=== PATIENT | male | born 1985 | race Caucasian/White ===

== ENCOUNTER 2018-08-05 07:44 | Emergency (ER) | payer MEDICAID, SELFPAY ==
[2018-08-05 07:51] VITALS: BP 127/73; PULSE 88; RESP 16; TEMP 36.6; O2SAT 96
[2018-08-05] MEDS: predniSONE 20 MG TAB 60 MG PO (08:00)
[2018-08-05] MEDS: Albuterol HFA 8 GM 60 PUFF INH IH (08:00)
--- NOTE | 2018-08-05 08:00 | W.ED.GENAD ---
Discharge Plan Disposition Patient Disposition: HOME Condition: Improving Discharge Details Chief Complaint: RespSymp Clinical Impression: Acute bronchitis with bronchospasm Primary Care Provider: NONE,NONE ED Provider: Chilo Fontaine Home Meds and New Rx's Prescriptions: New doxycycline hyclate 100 mg capsule 100 mg PO BID 10 Days Qty: 20 RF: 0 prednisone 20 mg tablet 40 mg PO DAILY 5 Days Qty: 10 RF: 0 guaifenesin [Mucinex] 600 mg tablet extended release 12hr 600 mg PO Q12H PRNQty: 10 RF: 0 Continue fluoxetine [Prozac] 40 MG capsule 1 cap PO DAILY RF: 0 atomoxetine [Strattera] 25 MG capsule 25 mg PO DAILY Qty: 60 RF: 2 No Action gabapentin 300 MG capsule 300 mg PO DIRECTED RF: 0 naloxone [Narcan] 4 MG spray,non-aerosol 4 mg NS DIRECTED Qty: 2 RF: 3 Discharge Instructions Instructions: Acute Bronchitis (ED) Additional Instructions: We will place your name on the list for follow-up to establish a primary care physician. Take medications as prescribed Return to the emergency department for any acute concerns. Please continue efforts to decrease smoking Medical Decision Making 33-year-old male smoker with 1 week of cough, congestion, wheezing at home. He presents with normal vital signs including oxygenation. He is in no acute distress. His exam does reveal some bronchospasm. Referred for chest x-ray to rule out underlying pneumonia versus bronchitis with bronchospasm. Given prednisone and albuterol updraft. He is somewhat improved with these therapeutics. His radiograph does not reveal clear infiltrate. We will place him on antibiotics for presumptive bronchitis. We will give him a burst of steroids as well. We will arrange for him to follow-up with PMD. HPI General Mode of arrival: ambulatory. Date/Time Provider Initiated Documentation: 08/05/18 07:45. Limitations to Documentation: no limitations. Information obtained by: patient and family. History of Present Illness 33 year old M presents to the emergency department with the chief complaint of Cough, described as moderate, Quality is described as aching, and is localized to the chest. Patient reports no radiation. Patient started experiencing this day(s) and it has been constant. No relieving factors improve symptom(s), No exacerbating factors reported . Patient notes fever/chills. HPI Narrative: 33-year-old male smoker presents with 1 week of cough, congestion, subjective fever and chills but has been associated with wheezing as well as some posttussive emesis. No diarrhea. He states that he is improved with Excedrin at home. No current inhalers. He states that he has otherwise recently been well. Positive sick contacts with family members Related Data Home Medications Medication Instructions Recorded Confirmed atomoxetine [Strattera] 25 mg PO DAILY #60 tab-cap 02/26/13 fluoxetine [Prozac] 1 cap PO DAILY tab-cap 02/26/13 gabapentin 300 mg PO DIRECTED 02/26/13 naloxone [Narcan Nasal [place]] 4 mg NS DIRECTED #2 spray 04/17/18 doxycycline hyclate 100 mg PO BID 10 Days #20 cap 08/05/18 guaifenesin [Mucinex] 600 mg PO Q12H PRN #10 tab 08/05/18 prednisone 40 mg PO DAILY 5 Days #10 tab 08/05/18 Previous Rx's Medication Instructions Recorded naloxone [Narcan Nasal [place]] 4 mg NS DIRECTED #2 spray 04/17/18 doxycycline hyclate 100 mg PO BID 10 Days #20 cap 08/05/18 guaifenesin [Mucinex] 600 mg PO Q12H PRN #10 tab 08/05/18 prednisone 40 mg PO DAILY 5 Days #10 tab 08/05/18 Allergies Allergy/AdvReac Type Severity Reaction Status Date / Time No Known Drug Allergies Allergy Unverified 08/05/18 08:02 Review of Systems Review of Systems 6 systems reviewed and otherwise negative PFSH Social History Smoking/Tobacco Use Status: Current every day Exam Narrative Exam Narrative: GEN: awake, alert, oriented 3. Pleasant, well groomed, interactive. HEAD: Normocephalic, atraumatic ENT: Mucous membranes moist, oropharynx unremarkable, External ear exam unremarkable EYES: PERRL, EOMI NECK: Full ROM, no KEEGAN, no menigismus CHEST/RESP: Nontender, cough noted, bilateral end expiratory wheeze. No significant rhonchi CARDIOVASCULAR: RRR, no murmur, rub troy. 2+ Rad pulse bilateral ABDOMEN: Soft, nontender, no mass. +Bowel sounds EXT: Full ROM, no edema, no rash Neuro: Grossly normal neurologic exam, conversant, interactive. Psych: Speech fluent, thoughts congruent, affect normal
--- NOTE | 2018-08-05 08:03 | ED.GENADUL_ITS ---
Discharge Plan Disposition Patient Disposition: HOME Condition: Improving Discharge Details Chief Complaint: RespSymp Clinical Impression: Acute bronchitis with bronchospasm Primary Care Provider: NONE,NONE ED Provider: Chilo Fontaine Home Meds and New Rx's Prescriptions: New doxycycline hyclate 100 mg capsule 100 mg PO BID 10 Days Qty: 20 RF: 0 prednisone 20 mg tablet 40 mg PO DAILY 5 Days Qty: 10 RF: 0 guaifenesin [Mucinex] 600 mg tablet extended release 12hr 600 mg PO Q12H PRNQty: 10 RF: 0 Continue fluoxetine [Prozac] 40 MG capsule 1 cap PO DAILY RF: 0 atomoxetine [Strattera] 25 MG capsule 25 mg PO DAILY Qty: 60 RF: 2 No Action gabapentin 300 MG capsule 300 mg PO DIRECTED RF: 0 naloxone [Narcan] 4 MG spray,non-aerosol 4 mg NS DIRECTED Qty: 2 RF: 3 Discharge Instructions Instructions: Acute Bronchitis (ED) Additional Instructions: We will place your name on the list for follow-up to establish a primary care physician. Take medications as prescribed Return to the emergency department for any acute concerns. Please continue efforts to decrease smoking Medical Decision Making 33-year-old male smoker with 1 week of cough, congestion, wheezing at home. He presents with normal vital signs including oxygenation. He is in no acute distress. His exam does reveal some bronchospasm. Referred for chest x-ray to rule out underlying pneumonia versus bronchitis with bronchospasm. Given prednisone and albuterol updraft. He is somewhat improved with these therapeutics. His radiograph does not reveal clear infiltrate. We will place him on antibiotics for presumptive bronchitis. We will give him a burst of steroids as well. We will arrange for him to follow-up with PMD. HPI General Mode of arrival: ambulatory . Date/Time Provider Initiated Documentation: 08/05/18 07:45 . Limitations to Documentation: no limitations . Information obtained by: patient and family . History of Present Illness 33 year old M presents to the emergency department with the chief complaint of Cough, described as moderate, Quality is described as aching, and is localized to the chest. Patient reports no radiation. Patient started experiencing this day(s) and it has been constant. No relieving factors improve symptom(s), No exacerbating factors reported . Patient notes fever/ chills. HPI Narrative: 33-year-old male smoker presents with 1 week of cough, congestion , subjective fever and chills but has been associated with wheezing as well as some posttussive emesis. No diarrhea. He states that he is improved with Excedrin at home. No current inhalers. He states that he has otherwise recently been well. Positive sick contacts with family members Related Data Home Medications Medication Instructions Recorded Confirmed atomoxetine [Strattera] 25 mg PO DAILY #60 tab-cap 02/26/13 fluoxetine [Prozac] 1 cap PO DAILY tab-cap 02/26/13 gabapentin 300 mg PO DIRECTED 02/26/13 naloxone [Narcan Nasal [place]] 4 mg NS DIRECTED #2 spray 04/17/18 doxycycline hyclate 100 mg PO BID 10 Days #20 cap 08/05/18 guaifenesin [Mucinex] 600 mg PO Q12H PRN #10 tab 08/05/18 prednisone 40 mg PO DAILY 5 Days #10 tab 08/05/18 Previous Rx's Medication Instructions Recorded naloxone [Narcan Nasal [place]] 4 mg NS DIRECTED #2 spray 04/17/18 doxycycline hyclate 100 mg PO BID 10 Days #20 cap 08/05/18 guaifenesin [Mucinex] 600 mg PO Q12H PRN #10 tab 08/05/18 prednisone 40 mg PO DAILY 5 Days #10 tab 08/05/18 Allergies Allergy/AdvReac Type Severity Reaction Status Date / Time No Known Drug Allergies Allergy Unverified 08/05/18 08:02 Review of Systems Review of Systems 6 systems reviewed and otherwise negative PFSH Social History Smoking/Tobacco Use Status: Current every day Exam Narrative Exam Narrative: GEN: awake, alert, oriented 3. Pleasant, well groomed, interactive. HEAD: Normocephalic, atraumatic ENT: Mucous membranes moist, oropharynx unremarkable, External ear exam unremarkable EYES: PERRL, EOMI NECK: Full ROM, no KEEGAN, no menigismus CHEST/RESP: Nontender, cough noted, bilateral end expiratory wheeze. No significant rhonchi CARDIOVASCULAR: RRR, no murmur, rub troy. 2+ Rad pulse bilateral ABDOMEN: Soft, nontender, no mass. +Bowel sounds EXT: Full ROM, no edema, no rash Neuro: Grossly normal neurologic exam, conversant, interactive. Psych: Speech fluent, thoughts congruent, affect normal
--- NOTE | 2018-08-05 08:21 | DI.RAD_ITS ---
SYMPTOM/DIAGNOSIS: COUGH, FEVER PA AND LATERAL CHEST: The heart is normal in size. The lungs are clear. The mediastinal structures and pleura appear intact. CONCLUSION: Normal chest.
--- NOTE | 2018-08-06 08:53 | PDOC.ERCMPRO ---
Care Management Progress Note 08/06-Dr. Fontaine requested assistance with a PCP f/u in two weeks for bronchitis/smoker. Patient transferred to [facility] on 04/30/2017. Referral faxed to [facility] this am. Called access and they have added Jim Guzmán as the PCP.
--- NOTE | 2018-08-06 08:54 | CMPROGNOTE_ITS ---
Care Management Progress Note 08/06-Dr. Fontaine requested assistance with a PCP f/u in two weeks for bronchitis /smoker. Patient transferred to [facility] on 04/30/2017. Referral faxed to [facility] this am. Called access and they have added Jim Guzmán as the PCP.
== END 2018-08-05 08:45 | disposition home or self-care (01) ==
PROVIDERS: Emergency Provider Emergency Medicine; PCP Nurse Practitioner Family
DX: J20.9 Acute bronchitis, unspecified (principal); F17.210 Nicotine dependence, cigarettes, uncomplicated
CPT/HCPCS: 99283; 71046; J7512

== ENCOUNTER 2018-10-23 10:30 | Emergency (ER) | payer MEDICAID, SELFPAY ==
[2018-10-23 10:37] VITALS: BP 146/71; PULSE 65; RESP 16; TEMP 36.6; O2SAT 97
--- NOTE | 2018-10-23 11:00 | ED.GENADUL_ITS ---
Discharge Plan Disposition Patient Disposition: HOME Condition: Stable Discharge Details Chief Complaint: DentalOral Clinical Impression: Dental infection Primary Care Provider: Maday Cheung ED Provider: Santiago Xie Home Meds and New Rx's Prescriptions: New ibuprofen [IBU] 600 mg tablet 600 mg PO QID PRN (Reason: pain) Qty: 20 RF: 0 amoxicillin-pot clavulanate [Augmentin] 875-125 mg tablet 1 tab PO BID Qty: 14 RF: 0 Continued fluoxetine [Prozac] 40 MG capsule 1 cap PO DAILY RF: 0 gabapentin 300 MG capsule 300 mg PO DIRECTED RF: 0 atomoxetine [Strattera] 25 MG capsule 25 mg PO DAILY Qty: 60 RF: 2 guaifenesin [Mucinex] 600 mg tablet extended release 12hr 600 mg PO Q12H PRNQty: 10 RF: 0 Narcan 4 MG spray,non-aerosol 4 mg NS DIRECTED Qty: 2 RF: 3 Discharge Instructions Instructions: Dental Abscess (ED), Dental Caries (ED) Additional Instructions: Please take antibiotic as prescribed and until fully gone. Follow-up with your dentist next week for reassessment. Feel free to return to the emergency department for any new or significant worsening of your symptoms. take 650 of acetaminophen with 600 mg of ibuprofen every 6 hours as needed for pain. Stand Alone Forms: Work Release Referrals: Maday Cheung [Primary Care Provider] - (Follow-up with your dentist next week for reassessment and more definitive care otherwise follow-up with your primary care provider for reassessment of infection if you are unable to see her dentist in a timely manner) Medical Decision Making Patient presenting to the emergency department for chief complaint of left upper tooth pain and facial swelling. Patient states that this started with a to get yet yesterday and progressed to swelling and increased pain today. He states that he has been taking ibuprofen throughout the night and had minimal relief. Physical exam is concerning for a fractured tooth #11 with erythema surrounding the base but no obvious area of fluctuance but some slight induration to the exterior cheek. I do not feel a palpable area of abscess or necessity to drain anything at this time. Discussed risk versus benefit with patient of dental block and he gave verbal consent to procedure. 1 mL of 0.25 bupivacaine was injected into the base of tooth #11. Patient had no side effects and procedure was unremarkable. Appropriate anesthetic level was achieved. Patient was placed on Augmentin encouraged to take 650 of acetaminophen with 600 mg of ibuprofen every 6 hours as needed for pain. Patient states that he [place] has a dental appointment followed up for next week so he was encouraged to return for any new or worsening signs or symptoms. After discussion of diagnosis and plan of care patient has no further needs, questions, or concerns and states clear understanding to return to the emergency department for any worsening symptoms. HPI General Mode of arrival: ambulatory . Date/Time Provider Initiated Documentation: 10/23/18 10:33 . Limitations to Documentation: no limitations . Information obtained by: patient . History of Present Illness 33 year old M presents to the emergency department with the chief complaint of Dental pain, described as severe, with intensity rated at 8. Quality is described as sharp, and is localized to the mouth. Patient started experiencing this day(s) (1) and it has been constant. No relieving factors improve symptom(s), Patient notes no other symptoms.. Patient did receive the following treatments prior to arrival, NSAID Related Data Home Medications Medication Instructions Recorded Confirmed atomoxetine [Strattera] 25 mg PO DAILY #60 tab-cap 02/26/13 10/23/18 fluoxetine [Prozac] 1 cap PO DAILY tab-cap 02/26/13 10/23/18 gabapentin 300 mg PO DIRECTED 02/26/13 10/23/18 Narcan 4 mg NS DIRECTED #2 spray 04/17/18 10/23/18 guaifenesin [Mucinex] 600 mg PO Q12H PRN #10 tab 08/05/18 10/23/18 amoxicillin-pot clavulanate 1 tab PO BID #14 tab 10/23/18 [Augmentin] ibuprofen [IBU] 600 mg PO QID PRN #20 tab 10/23/18 Previous Rx's Medication Instructions Recorded Narcan 4 mg NS DIRECTED #2 spray 04/17/18 guaifenesin [Mucinex] 600 mg PO Q12H PRN #10 tab 08/05/18 amoxicillin-pot clavulanate 1 tab PO BID #14 tab 10/23/18 [Augmentin] ibuprofen [IBU] 600 mg PO QID PRN #20 tab 10/23/18 Allergies Allergy/AdvReac Type Severity Reaction Status Date / Time No Known Drug Allergies Allergy Unverified 10/23/18 10:54 General Stated Complaint: DentalOral EVITA: 5 Review of Systems Constitutional Denies chills and Denies fever(s) ENT Reports as per HPI, Denies change in voice, Reports dental pain, Denies dysphag ia, Denies throat swelling and Denies tongue swelling Cardiovascular Denies chest pain and Denies dyspnea Respiratory Denies dyspnea Gastrointestinal Denies dysphagia Integumentary/Breasts Denies rash Allergic/Immunologic Denies throat swelling and Denies tongue swelling [facility] Social History Smoking/Tobacco Use Status: Current every day Exam Const General: cooperative Orientation: alert, awake and oriented x3 Limitations: mental status not altered HENMT Head: normal to inspection, normocephalic and atraumatic Ears: hearing grossly normal bilaterally, normal mastoids bilaterally and no periauricular adenopathy General nose exam: external nose normal Mouth: oropharynx normal, no drooling, no muffled voice, normal tongue and no trismus Teeth and gingiva: caries, poor dentition and other (Partially fractured tooth 11with erythema surrounding the base of the tooth) Throat: posterior oropharynx normal, tonsils normal and uvula midline Eyes General: appearance normal, both eyes and all related structures Pupils: PERRL Neck Neck: normal visual inspection, full ROM, no lymphadenopathy, no meningeal signs, trachea midline, supple, no anterior neck swelling and no midline deformity Resp Effort & Inspection: normal respiratory effort and able to speak in complete sentences Course Vital Signs Temperature 36.6 C 10/23/18 10:37 Pulse 65 10/23/18 10:37 Respiratory Rate 16 10/23/18 10:37 Blood Pressure 146/71 H 10/23/18 10:37 Pulse Oximetry 97 10/23/18 10:37 Temperature 36.6 C 10/23/18 10:37 Temperature Source Skin 10/23/18 10:37 Pulse 65 10/23/18 10:37 Respiratory Rate 16 10/23/18 10:37 Respiratory Effort 10/23/18 10:52 Blood Pressure 146/71 H 10/23/18 10:37 Pulse Oximetry 97 10/23/18 10:37 Oxygen Delivery Method Room Air 10/23/18 10:37 Oxygen Flow Rate 0 10/23/18 10:37 Pain Level 8 10/23/18 10:37
[2018-10-23] MEDS: Acetaminophen 325 MG TAB 650 MG PO (11:02)
[2018-10-23] MEDS: Ibuprofen 600 MG TAB PO (11:02)
[2018-10-23] MEDS: Amoxicillin 875/Clav. 125 TAB PO (11:02)
--- NOTE | 2018-10-23 11:04 | NUR.NOTE ---
patient medicated per MD order Nursing Note:
== END 2018-10-23 11:24 | disposition home or self-care (01) ==
LOC: ER 11:07
PROVIDERS: Emergency Provider Nurse Practitioner Family; PCP Nurse Practitioner Family
DX: K04.7 Periapical abscess without sinus (principal)
CPT/HCPCS: 99283

== ENCOUNTER 2020-10-16 17:58 | Emergency (ER) | payer MEDICAID, SELFPAY ==
[2020-10-16 18:02] VITALS: BP 125/80; PULSE 110; RESP 16; TEMP 37.2; O2SAT 95
--- NOTE | 2020-10-16 18:20 | W.ED.GENAD ---
Discharge Plan Disposition Patient Disposition: HOME Condition: Improving Discharge Details Clinical Impression: Abdominal wall cellulitis Primary Care Provider: Maday Cheung ED Provider: Chilo Fontaine Home Meds and New Rx's Prescriptions: New cephalexin 500 mg capsule 500 mg PO TID 7 Days Qty: 21 RF: 0 No Action gabapentin 300 MG capsule 600 mg PO DIRECTED RF: 0 hydroxyzine HCl 25 mg tablet 25 mg PO BID RF: 0 Sublocade 300 mg/1.5 mL Solution, Extended Rel Syringe 1.5 mg SUBCUT .MONTHLY RF: 0 Narcan 4 MG spray,non-aerosol 4 mg NS DIRECTED Qty: 2 RF: 3 ibuprofen [IBU] 600 mg tablet 600 mg PO QID PRN (Reason: pain) Qty: 20 RF: 0 Discharge Instructions Instructions: Cellulitis (ED) Additional Instructions: Please take Keflex as prescribed. Please phone [facility] for an appointment to be seen early in the week for recheck. Tylenol as needed for aches or pains or fever. Return if you have increasing pain, pointing abscess, or any other acute concerns. Continue your routine medications. Medical Decision Making 35-year-old male presents from home. He will receive his third monthly dose of Sublocade subcutaneous injection on October 13 and noticed developing erythema the next morning. Today, he has mild progression of the erythema and some concern for infection. Not had a fever. He has otherwise been well. He is well-appearing and afebrile. There is a 3 x 6 cm area of erythema on the anterior abdominal wall at the site of the subcutaneous morphine injection. Concern for developing cellulitis. Do not appreciate that there is an abscess present. Discussed with him that we will place him on Keflex and asked him to follow-up in clinic this week for recheck. He understands indications to return to the ER in the interim. HPI General Mode of arrival: ambulatory. Date/Time Provider Initiated Documentation: 10/16/20 17:59. Limitations to Documentation: no limitations. Information obtained by: patient. History of Present Illness 35 year old M presents to the emergency department with the chief complaint of Left lower abdomen erythema after Sublocade Inj, described as moderate, Quality is described as dull and constant, and is localized to the abdomen and left. Patient started experiencing this day(s) and it has been constant. No relieving factors improve symptom(s), No exacerbating factors reported . Patient notes denies fever/chills and loss of appetite. Patient did receive the following treatments prior to arrival, none Related Data Home Medications Medication Instructions Recorded Confirmed gabapentin 600 mg PO DIRECTED 02/26/13 10/16/20 Narcan 4 mg NS DIRECTED #2 spray 04/17/18 10/23/18 ibuprofen [IBU] 600 mg PO QID PRN #20 tab 10/23/18 buprenorphine [Sublocade] 1.5 mg SUBCUT .MONTHLY 10/16/20 10/16/20 cephalexin 500 mg PO TID 7 Days #21 cap 10/16/20 hydroxyzine HCl 25 mg PO BID 10/16/20 10/16/20 Previous Rx's Medication Instructions Recorded Narcan 4 mg NS DIRECTED #2 spray 04/17/18 ibuprofen [IBU] 600 mg PO QID PRN #20 tab 10/23/18 cephalexin 500 mg PO TID 7 Days #21 cap 10/16/20 Allergies Allergy/AdvReac Type Severity Reaction Status Date / Time No Known Drug Allergies Allergy Unverified 10/16/20 18:07 General Stated Complaint: Cellulitis EVITA: 4 Review of Systems Narrative: 6 systems reviewed and otherwise negative [facility] Social History Smoking/Tobacco Use Status: Current every day Smoking risk assessment performed?: Yes Alcohol Intake: current Alcohol Intake frequency: a few times a month Drug use: Never Details: former drug use Do you feel safe at home: Yes Do you feel safe in your relationship?: Yes Exam Narrative Exam Narrative: GEN: awake, alert, oriented 3. Pleasant, well groomed, interactive. HEAD: Normocephalic, atraumatic ENT: Mucous membranes moist, oropharynx unremarkable, External ear exam unremarkable EYES: PERRL, EOMI NECK: Full ROM, no KEEGAN, no menigismus CHEST/RESP: Nontender, clear to auscultation bilateral, no wheeze/rhonchi/rales CARDIOVASCULAR: RRR, no murmur, rub troy. 2+ Rad pulse bilateral ABDOMEN: Soft, approximate 3x 6 cm area of erythema with central induration, no fluctuance appreciated, no rebound tenderness, no mass. +Bowel sounds EXT: Full ROM, no edema, no rash Neuro: Grossly normal neurologic exam, conversant, interactive. Psych: Speech fluent, thoughts congruent, affect normal Course Vital Signs Vital signs: Vital Signs Temperature 37.2 C 10/16/20 18:02 Pulse 110 H 10/16/20 18:02 Respiratory Rate 16 10/16/20 18:02 Blood Pressure 125/80 10/16/20 18:02 Pulse Oximetry 95 10/16/20 18:02 Temperature 37.2 C 10/16/20 18:02 Temperature Source Skin 10/16/20 18:02 Pulse 110 H 10/16/20 18:02 Respiratory Rate 16 10/16/20 18:02 Respiratory Effort Non-Labored 10/16/20 18:05 Blood Pressure 125/80 10/16/20 18:02 Blood Pressure Position Sitting 10/16/20 18:02 Pulse Oximetry 95 10/16/20 18:02 Oxygen Delivery Method Room Air 10/16/20 18:02 Oxygen Flow Rate 0 10/16/20 18:02 Pain Level 8 10/16/20 18:02
[2020-10-16] MEDS: Cephalexin 500 MG CAP, 4 CAPS/BTL PO (18:25)
== END 2020-10-16 18:30 | disposition home or self-care (01) ==
PROVIDERS: Emergency Provider Emergency Medicine; PCP Nurse Practitioner Family
DX: L03.311 Cellulitis of abdominal wall (principal); Z79.891 Long term (current) use of opiate analgesic; Z86.59 Personal history of other mental and behavioral disorders
CPT/HCPCS: 99283

== ENCOUNTER 2021-02-23 11:09 | Emergency (ER) | payer MEDICAID, SELFPAY ==
[2021-02-23 11:13] VITALS: BP 140/72; PULSE 76; RESP 18; TEMP 36.7; O2SAT 97
--- NOTE | 2021-02-23 11:43 | ED.GENADUL_ITS ---
Discharge Plan Disposition Patient Disposition: HOME Condition: Stable Discharge Details Clinical Impression: Atopic contact dermatitis Primary Care Provider: Maday Cheung ED Provider: Lupe Oliver Home Meds and New Rx's Prescriptions: New alclometasone 0.05 % cream 1 applic topical BID PRN5 Days Qty: 45 RF: 0 No Action gabapentin 300 MG capsule 600 mg PO DIRECTED RF: 0 Narcan 4 MG spray,non-aerosol 4 mg NS DIRECTED Qty: 2 RF: 3 ibuprofen [IBU] 600 mg tablet 600 mg PO QID PRN (Reason: pain) Qty: 20 RF: 0 Discharge Instructions Instructions: Dermatitis (ED) Additional Instructions: Use cream twice daily for no longer than 5 days as needed. Wash with lukewarm water gentle soap. Do not apply any lotion with alcohol in it. Wash clothes from work separately. Keep applying lotion as previously none if there is improvemen t. Follow up with primary care provider in 3-5 days. Return to ED sooner if any worsening or concerns. Increase oral fluids. Stand Alone Forms: Work Release Referrals: Maday Cheung [Primary Care Provider] - Discharge Data Discharge Date/Time-TO BE ENTERED AT DEPARTURE: 02/23/21 11:44 Medical Decision Making 35-year-old male presents to the ER with chief complaint of bilateral lower extremity red rash which he noticed Sunday night. 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 He states that he has been putting Eucerin lotion on it which has improved symptoms somewhat. He denies any pruritus. Denies any fever or rash anywhere else. No rash noted to his feet. He does have erythemic, scaly type rash noted to his bilateral lower extremities which is circumferential. Is blanchable with palpation. No significant past medical history. At this time low potency topical corticosteroids prescribed discussed not to use for longer than 5 days. Instructed to follow-up with PCP. Verbalized understanding. Differential diagnosis includes but not limited to contact dermatitis, atopic dermatitis, scabies, allergic reaction, psoriasis, eczema. HPI General Mode of arrival: ambulatory . Date/Time Provider Initiated Documentation: 02/23/21 11:10 . Limitations to Documentation: no limitations . Information obtained by: patient . HPI Narrative: 35-year-old male presents to the ER with chief complaint of bilateral lower extremity red rash which he noticed Sunday night. 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 He states that he has been putting Eucerin lotion on it which has improved symptoms somewhat. He denies any pruritus. Denies any fever or rash anywhere else. No rash noted to his feet. He does have erythemic, scaly type rash noted to his bilateral lower extremities which is circumferential. Is blanchable with palpation. No significant past medical history Related Data Home Medications Medication Instructions Recorded Confirmed gabapentin 600 mg PO DIRECTED 02/26/13 02/23/21 Narcan 4 mg NS DIRECTED #2 spray 04/17/18 02/23/21 ibuprofen [IBU] 600 mg PO QID PRN #20 tab 10/23/18 02/23/21 alclometasone 1 applic TOPICAL BID PRN 5 Days 02/23/21 #45 g Previous Rx's Medication Instructions Recorded Narcan 4 mg NS DIRECTED #2 spray 04/17/18 ibuprofen [IBU] 600 mg PO QID PRN #20 tab 10/23/18 alclometasone 1 applic TOPICAL BID PRN 5 Days 02/23/21 #45 g Allergies Allergy/AdvReac Type Severity Reaction Status Date / Time No Known Drug Allergies Allergy Unverified 02/23/21 11:16 General Stated Complaint: RashLesion EVITA: 5 Review of Systems All systems reviewed & are unremarkable except as noted in HPI and below Integumentary/Breasts Skin/Breast: Reports rash (Bilateral lower extremity) [facility] Social History Smoking/Tobacco Use Status: Current every day Tobacco Type: cigarettes Smoking risk assessment performed?: Yes Alcohol Intake: current Alcohol Intake frequency: a few times a month Substance use type: former substance user Do you feel safe at home: Yes Do you feel safe in your relationship?: Yes Exam Skin General skin exam: no rashes or lesions noted, elasticity normal and turgor normal Lesions: no lesions Rashes: rashes noted patches bilateral lower leg arrangement confluent, borders indistinct, color red and surface dry and flaking; fluctuant not assessed and nontender Trauma: no lacerations or abrasions Wounds: no wounds Hair: normal Nails: normal Course Vital Signs Vital signs: Vital Signs Temperature 36.7 C 02/23/21 11:13 Pulse 76 02/23/21 11:13 Respiratory Rate 18 02/23/21 11:13 Blood Pressure 140/72 02/23/21 11:13 Pulse Oximetry 97 02/23/21 11:13 Temperature 36.7 C 02/23/21 11:13 Temperature Source Skin 02/23/21 11:13 Pulse 76 02/23/21 11:13 Respiratory Rate 18 02/23/21 11:13 Respiratory Effort Non-Labored 02/23/21 11:18 Blood Pressure 140/72 02/23/21 11:13 Blood Pressure Position Sitting 02/23/21 11:13 Pulse Oximetry 97 02/23/21 11:13 Oxygen Delivery Method Room Air 02/23/21 11:13 Oxygen Flow Rate 0 02/23/21 11:13 Pain Level 0 02/23/21 11:13
== END 2021-02-23 11:44 | disposition home or self-care (01) ==
PROVIDERS: Emergency Provider Registered Nurse Emergency; PCP Nurse Practitioner Family
DX: L23.89 Allergic contact dermatitis due to other agents (principal)
CPT/HCPCS: 99283

== ENCOUNTER 2021-04-25 13:29 | Emergency (ER) | payer MEDICAID, SELFPAY ==
[2021-04-25 13:36] VITALS: BP 136/91; PULSE 85; RESP 16; TEMP 36.7; O2SAT 97
--- NOTE | 2021-04-25 14:02 | ED.GENADUL_ITS ---
Discharge Plan Disposition Patient Disposition: HOME Condition: Stable Discharge Details Clinical Impression: Tooth ache, Blister of lip with infection Primary Care Provider: Maday Cheung ED Provider: Lupe Oliver Home Meds and New Rx's Prescriptions: No Action gabapentin 300 MG capsule 600 mg PO DIRECTED RF: 0 methadone 10 mg/mL Solution 70 mg DAILY RF: 0 Narcan 4 MG spray,non-aerosol 4 mg NS DIRECTED Qty: 2 RF: 3 ibuprofen [IBU] 600 mg tablet 600 mg PO QID PRN (Reason: pain) Qty: 20 RF: 0 Discharge Instructions Instructions: Toothache (ED) Additional Instructions: Rinse mouth after eating or drinking, continue taking the penicillin as previously prescribed. Return for any worsening swelling, trouble swallowing, fever, chills or any concerns. Please follow-up with a dentist in the next week or 2. Follow up with primary care provider in 3-5 days. Return to ED sooner if any worsening or concerns. Increase oral fluids. Please take Tylenol or Ibuprofen with food every 4-6 hours as needed for pain and swelling. Stand Alone Forms: Work Release Discharge Data Discharge Date/Time-TO BE ENTERED AT DEPARTURE: 04/25/21 14:15 Medical Decision Making Patient began with a left lower tooth abscess on Sunday which spread to his left lower lip. He has been taking penicillins and Sunday afternoon. He is here in the ER with a request for a work note for today. No other complaints. He reports improvement in his symptoms since starting the penicillin. He is waiting to hear back from the dentist for a follow-up appointment. Patient requesting a work note for today due to dental pain limits lesions. He is already taken antibiotics for dental infection. He reports improvement since taking the antibiotic. Patient given a work note and discussed strict return instructions instructed to rinse out mouth and practice good oral hygiene. HPI General Mode of arrival: ambulatory . Date/Time Provider Initiated Documentation: 04/25/21 14:02 . Limitations to Documentation: no limitations . Information obtained by: patient . HPI Narrative: Patient began with a left lower tooth abscess on Sunday which spread to his left lower lip. He has been taking penicillins and Sunday afternoon. He is here in the ER with a request for a work note for today. No other complaints. He reports improvement in his symptoms since starting the penicillin. He is waiting to hear back from the dentist for a follow-up appointment. Related Data Home Medications Medication Instructions Recorded Confirmed gabapentin 600 mg PO DIRECTED 02/26/13 04/25/21 Narcan 4 mg NS DIRECTED #2 spray 04/17/18 04/25/21 ibuprofen [IBU] 600 mg PO QID PRN #20 tab 10/23/18 04/25/21 methadone 70 mg DAILY 04/25/21 04/25/21 Previous Rx's Medication Instructions Recorded Narcan 4 mg NS DIRECTED #2 spray 04/17/18 ibuprofen [IBU] 600 mg PO QID PRN #20 tab 10/23/18 Allergies Allergy/AdvReac Type Severity Reaction Status Date / Time No Known Drug Allergies Allergy Unverified 04/25/21 13:41 General Stated Complaint: DentalOral EVITA: 5 Review of Systems All systems reviewed & are unremarkable except as noted in HPI and below ENT Ears, Nose, Mouth, and Throat: Reports as per HPI, Reports dental pain and Reports mouth lesions [facility] Social History Smoking/Tobacco Use Status: Former Tobacco Use Smoking risk assessment performed?: Yes Alcohol Intake: current Alcohol Intake frequency: a few times a month Substance use type: former substance user Do you feel safe at home: Yes Do you feel safe in your relationship?: Yes Exam [facility] Mouth/tongue images: 1. Left lower inner lip lesion Teeth and gingiva: abnormal tooth or associated gingiva lower left canine tender and poor dentition Teeth image: 1. Dental caries extending into the gingiva no surrounding edema or abscess noted no area of fluctuance. Throat: posterior oropharynx normal Course Vital Signs Vital signs: Vital Signs Temperature 36.7 C 04/25/21 13:36 Pulse 85 04/25/21 13:36 Respiratory Rate 16 04/25/21 13:36 Blood Pressure 136/91 H 04/25/21 13:36 Pulse Oximetry 97 04/25/21 13:36 Temperature 36.7 C 04/25/21 13:36 Temperature Source Skin 04/25/21 13:36 Pulse 85 04/25/21 13:36 Respiratory Rate 16 04/25/21 13:36 Respiratory Effort Non-Labored 04/25/21 13:36 Blood Pressure 136/91 H 04/25/21 13:36 Blood Pressure Position Sitting 04/25/21 13:36 Pulse Oximetry 97 04/25/21 13:36 Oxygen Delivery Method Room Air 04/25/21 13:36 Oxygen Flow Rate 0 04/25/21 13:36 Pain Level 6 04/25/21 13:44
== END 2021-04-25 14:15 | disposition home or self-care (01) ==
PROVIDERS: Emergency Provider Registered Nurse Emergency; PCP Nurse Practitioner Family
DX: K08.89 Other specified disorders of teeth and supporting structures (principal); K13.0 Diseases of lips
CPT/HCPCS: 99282; 99281

== ENCOUNTER 2022-08-02 12:00 | Emergency (ER) | payer MEDICAID, SELFPAY ==
[2022-08-02 12:03] VITALS: BP 117/74; PULSE 65; RESP 17; TEMP 36.6; O2SAT 98
--- NOTE | 2022-08-02 12:15 | DI.RAD_ITS ---
Exam(s) XR CHEST 2V PA LATERAL EXAM: XR CHEST 2V PA LATERAL CLINICAL HISTORY: peripheral edema TECHNIQUE: 2D digital imaging was performed. COMPARISON: CR XR CHEST 2V PA LATERAL from 08/05/2018 FINDINGS: The heart is not enlarged. The lungs are clear and well expanded. No pleural effusion seen. Mediastin al contours appear intact. IMPRESSION: Normal chest. RADIATION DOSE DELIVERED: Total DLP
[2022-08-02 12:45] LABS: Abs Immature Grans 0.01 10^3/uL (0.0-0.06); Absolute Basophil Count 0.07 10^3/uL (0.0-0.2); Absolute Lymphocyte Count 1.06 10^3/uL (1.2-3.4); Absolute Monocyte Count 0.66 10^3/uL (0.1-0.8); Absolute Neutrophil Count 4.65 10^3/uL (1.2-6.7); Basophils % 1.1; HCT 38.6 % (40.0-50.0); HGB 13.2 g/dL (13.5-17.5); Immature Grans % 0.2; Lymphocytes % 15.9; MCH 29.7 pg (27.0-33.0); MCHC 34.2 % (32.0-36.0); MCV 87 fL (80-95); MPV 9.4 fL (8.0-11.0); Monocytes % 9.9; Neutrophils % 69.9; Platelet Count 354 10^3/uL (130-400); RBC 4.44 10^6/uL (4.36-5.78); RDW 12.2 % (11.8-14.1); WBC 6.65 10^3/uL (4.4-10.8)
[2022-08-02 13:10] LABS: ALT 27 U/L (16-63); AST 25 U/L (15-37); Albumin 3.4 g/dL (3.4-5.0); Alkaline Phosphatase 71 U/L (46-116); Anion Gap 4.9 mmol/L (3-11); BUN 8 mg/dL (7-18); Bilirubin, Total 0.4 mg/dL (0.2-1.0); CO2 31.1 mmol/L (21.0-32.0); CREATININE 0.8 mg/dL (0.70-1.30); Calcium 9.1 mg/dL (8.5-10.1); Chloride 103 mmol/L (98-107); Glucose 100 mg/dL (74-106); NT-proBNP 269 pg/mL (<300); Potassium 3.9 mmol/L (3.5-5.1); Sodium 139 mmol/L (136-145); Total Protein 7.6 g/dL (6.4-8.2)
--- NOTE | 2022-08-02 13:16 | ED.GENADUL_ITS ---
Discharge Plan Disposition Patient Disposition: HOME Condition: Stable Discharge Details Clinical Impression: Edema, peripheral Primary Care Provider: Maday Cheung ED Provider: Bertha Lees Home Meds and New Rx's Prescriptions: New furosemide [Lasix] 20 mg tablet 20 mg PO DAILY Qty: 7 0RF cephalexin 500 mg tablet 500 mg PO Q6H 7 Days Qty: 28 0RF Discharge Instructions Additional Instructions: Elevate your legs above frequently as possible You may wear the compression stocking when you are out and about Take the Lasix as prescribed, this will increase your urination Take the Keflex only if you have persistent symptoms greater than 48 hours, suspect this is related to the swelling and less likely to be infectious I recommend following up with her primary care physician closely in the outpatient setting, call to schedule appointment tomorrow Referrals: Maday Cheung [Primary Care Provider] - Discharge Data Discharge Date/Time-TO BE ENTERED AT DEPARTURE: 08/02/22 13:08 Medical Decision Making Patient left prior to return of chemistry Chest x-ray, CBC, and chemistry are within normal limits upon review Placed on Lasix 20 mg daily for 7 days and Keflex which I encouraged patient not to take if symptoms improve after 48 hours of diuresis and elevation Medical Records Medical records reviewed: Yes I reviewed the patient's medical records. Lab Data Lab results reviewed: Yes I reviewed the patient's lab results. HPI General Date/Time Provider Initiated Documentation: 08/02/22 12:10 . HPI Narrative: This 37-year-old male presents with peripheral edema for the past week. 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 And time. He states he had numerous episodes similar in the past but they usually self resolve with rest and elevation. He has been unable to rest for the past week per patient. He denies any fever or chills. He denies significant pain. He presents mostly secondary to redness and swelling. He denies any chest pain or shortness of breath. Denies a history of IV drug abuse but has not used any illicit drugs for the past 8 months per patient. Related Data Home Medications Medication Instructions Recorded Confirmed cephalexin 500 mg tablet 500 mg PO Q6H 7 days #28 tabs 08/02/22 furosemide 20 mg tablet (Lasix) 20 mg PO DAILY #7 tabs 08/02/22 Previous Rx's Medication Instructions Recorded cephalexin 500 mg tablet 500 mg PO Q6H 7 days #28 tabs 08/02/22 furosemide 20 mg tablet (Lasix) 20 mg PO DAILY #7 tabs 08/02/22 Allergies Allergy/AdvReac Type Severity Reaction Status Date / Time No Known Drug Allergies Allergy Unverified 04/25/21 13:41 General Stated Complaint: Cellulitis EVITA: 3 Review of Systems Narrative: Review obtained x 7 and negative aside from medication HPI still PFSH All Active Problems (Updated 08/02/22 @ 12:58 by GIOVANNA Joy) Atopic contact dermatitis (Acute) Tooth ache (Acute) Blister of lip with infection (Acute) Edema, peripheral (Acute) Attention deficit hyperactivity disorder, combined type (Acute) Social History Smoking/Tobacco Use Status: Former Tobacco Use Smoking risk assessment performed?: Yes Alcohol Intake: current Alcohol Intake frequency: a few times a month Drug use: Never Substance use type: former substance user Do you feel safe at home: Yes Do you feel safe in your relationship?: Yes Exam Const General: cooperative, comfortable and no acute distress Resp Effort & Inspection: normal respiratory effort Auscultation: clear to auscultation bilaterally Cardio Rate: regular rate Rhythm: regular rhythm Heart Sounds: no murmurs Skin Other: Peripheral edema with overlying erythema, nontender to bilateral lower extremities, no crepitus, symmetrical bilateral swelling Neuro General: patient alert and patient oriented x3 Extrem Other: Symmetrical bilateral swelling, erythema noted, nontender, no crepitus Course Vital Signs Vital signs: Vital Signs Temperature 36.6 C 08/02/22 12:03 Pulse 65 08/02/22 12:03 Respiratory Rate 17 08/02/22 12:03 Blood Pressure 117/74 08/02/22 12:03 Pulse Oximetry 98 08/02/22 12:03 Temperature 36.6 C 08/02/22 12:03 Temperature Source Tympanic 08/02/22 12:03 Pulse 65 08/02/22 12:03 Respiratory Rate 17 08/02/22 12:03 Respiratory Effort Non-Labored 08/02/22 12:07 Blood Pressure 117/74 08/02/22 12:03 Blood Pressure Position Sitting 08/02/22 12:03 Pulse Oximetry 98 08/02/22 12:03 Oxygen Delivery Method Room Air 08/02/22 12:03 Oxygen Flow Rate 0 08/02/22 12:03 Pain Level 3 08/02/22 12:03 Lab/Test Results Lab/Test Results: Laboratory Tests Range/Units 08/02/22 08/02/22 12:37 12:37 WBC (4.4-10.8) 10^3/uL 6.65 RBC (4.36-5.78) 10^6/uL 4.44 Hgb (13.5-17.5) g/dL 13.2 L Hct (40.0-50.0) % 38.6 L MCV (80-95) fL 87 MCH (27.0-33.0) pg 29.7 MCHC (32.0-36.0) % 34.2 RDW (11.8-14.1) % 12.2 Plt Count (130-400) 10^3/uL 354 MPV (8.0-11.0) fL 9.4 Immature Gran % 0.2 Neutrophils % 69.9 Lymphocytes % 15.9 Monocytes % 9.9 Eosinophils % 3.0 Basophils % 1.1 Nucleated RBC % (0.0-0.3) % 0.0 Absolute Neutrophils (1.2-6.7) 10^3/uL 4.65 Absolute Lymphocytes (1.2-3.4) 10^3/uL 1.06 L Absolute Monocytes (0.1-0.8) 10^3/uL 0.66 Absolute Eosinophils (0.0-0.7) 10^3/uL 0.20 Absolute Basophils (0.0-0.2) 10^3/uL 0.07 Sodium (136-145) mmol/L 139 Potassium (3.5-5.1) mmol/L 3.9 Chloride (98-107) mmol/L 103 Carbon Dioxide (21.0-32.0) mmol/L 31.1 Anion Gap (3-11) mmol/L 4.9 BUN (7-18) mg/dL 8 Creatinine (0.70-1.30) mg/dL 0.8 Est GFR (CKD-EPI 2020) (mL/min/1.73m2) 116.90 Glucose (74-106) mg/dL 100 Calcium (8.5-10.1) mg/dL 9.1 Total Bilirubin (0.2-1.0) mg/dL 0.4 AST (15-37) U/L 25 ALT (16-63) U/L 27 Alkaline Phosphatase (46-116) U/L 71 NT-Pro-B Natriuret Pep (<300) pg/mL 269 Total Protein (6.4-8.2) g/dL 7.6 Albumin (3.4-5.0) g/dL 3.4 PAWSS Have you Been Recently Intoxicated or Drunk Within the Last 30 days?: No Have you Ever Experienced Previous Episodes of Alcohol Withdrawal?: No Have you ever Experienced Withdrawal Seizures?: No Have you ever Experienced Delirium Tremens(DT)s?: No Have you ever undergone Alcohol Rehabilitation Treatment (i.e, inpt ot outpatient treatment programs)?: No Have you ever Experienced Blackouts?: No Have you ever Combined Alcohol with other Downers within the last 90 days?: No Have you ever Combined Alcohol with any other Substance of Abuse during the last 90 days?: No Result: 0
== END 2022-08-02 13:08 | disposition home or self-care (01) ==
PROVIDERS: Emergency Provider Physician Assistant; PCP Nurse Practitioner Family
DX: R60.0 Localized edema (principal); L53.9 Erythematous condition, unspecified; M79.89 Other specified soft tissue disorders
CPT/HCPCS: 36415; 80053; 99283; 71046; 83880; 85025; 99284